=== PATIENT | female | born 1980 | race Caucasian/White ===

== ENCOUNTER 2016-11-19 07:30 | Inpatient (IN) | payer OTHER ==
[2016-11-19] MEDS ORDERED: TERBUTALINE SULFATE 1 MG/ML VIAL IV PRN (08:49)
[2016-11-19] MEDS ORDERED: EPSOM SALT 454 GM TP PRN (08:49)
[2016-11-19] MEDS ORDERED: OXYTOCIN/RINGERS LACTATE 1,000 ML IV PRN (08:49)
[2016-11-19] MEDS ORDERED: LR 1,000 ML IV PRN (08:49)
[2016-11-19] MEDS ORDERED: OLIVE OIL 118 ML BTL MISC PRN (08:49)
[2016-11-19] MEDS ORDERED: AMMONIA AROMATIC 1 EACH AMP IH ONE (08:58)
[2016-11-19] MEDS ORDERED: OLIVE OIL 118 ML BTL ONE (08:58)
[2016-11-19] MEDS ORDERED: OXYTOCIN 10 UNIT/ML VIAL ONE (08:58)
[2016-11-19] MEDS ORDERED: LIDOCAINE 1% 300 MG/30 ML SDV ONE (08:58)
[2016-11-19] MEDS ORDERED: MISOPROSTOL 200 MCG TAB ONE (08:58)
[2016-11-19] MEDS: CLINDAMYCIN 900 MG/DEXTROSE 50 ML IV SCH ×2 (09:20→22:29)
[2016-11-19 09:40] LABS: % IMMATURE GRANULYOCYTES 0.7 % (0.0-1.1); ABSOLUTE IMMATURE GRANULOCYTES 0.08 10^3/uL (0.00-0.10); ADD DIFF? NO; ADD MORPH? NO; ADD SCAN? NO; ATYPICAL LYMPHOCYTE FLAG 10 (0-99); FRAGMENT RBC FLAG 0 (0-99); HEMATOCRIT 42.2 % (38.0-47.0); HEMOGLOBIN 14.8 g/dL (12.6-16.3); LEFT SHIFT FLG 0 (0-99); LIPEMIA HEMOLYSIS FLAG 90 (0-99); MEAN CELL HEMOGLOBIN 32.3 pg (27.9-34.1); MEAN CELL HEMOGLOBIN CONCENTR. 35.1 g/dL (32.4-36.7); MEAN CELL VOLUME 92.1 fL (81.5-99.8); MEAN PLATELET VOLUME 11.3 fL (8.7-11.7); PLATELET CLUMPS FLAG 0 (0-99); PLATELET COUNT 163 10^3/uL (150-400); RED BLOOD CELL COUNT 4.58 10^6/uL (4.18-5.33); RED CELL DISTRIBUTION WIDTH 12.5 % (11.5-15.2)
[2016-11-19 09:46] LABS: ALANINE AMINOTRANSFERASE 32 IU/L (9-52); ASPARTATE AMINOTRANSFERASE 27 IU/L (14-46); BILIRUBIN,TOTAL 0.4 mg/dL (0.1-1.4); BILIRUBIN-CONJUGATED 0.1 mg/dL (0.0-0.5); BILIRUBIN-UNCONJUGATED 0.3 mg/dL (0.0-1.1); CREATININE 0.6 mg/dL (0.6-1.0); GLOMERULAR FILTRATION RATE > 60; LACTATE DEHYDROGENASE 443 IU/L (313-618); URIC ACID 5.9 mg/dL (2.5-6.8)
--- NOTE | 2016-11-19 10:42 | OBPROG ---
OBG Labor Progress Note Assessment/Plan: Assessment: 36 y/o @ 40 2/7 wks who presents with SROM Plan: Continue expectant management FHTs - Cat I tracing Pt desires an epidural at this time GBS +, treating with Abx-Clindamycin secondary to PCN allergy Anticipate 11/19/16 10:39 Subjective: Pt is having pain with ctx's and wants an epidural at this time. Objective: 11/19/16 09:20 11/19/16 09:20 Patient ABO/Rh A POSITIVE 11/19/16 09:20 Uric Acid 5.9 mg/dL (2.5-6.8) 11/19/16 09:20 Total Bilirubin 0.4 mg/dL (0.1-1.4) 11/19/16 09:20 Conjugated Bilirubin 0.1 mg/dL (0.0-0.5) 11/19/16 09:20 Unconjugated Bilirubin 0.3 mg/dL (0.0-1.1) 11/19/16 09:20 AST 27 IU/L (14-46) 11/19/16 09:20 ALT 32 IU/L (9-52) 11/19/16 09:20 Lactate Dehydrogenase 443 IU/L (313-618) 11/19/16 09:20 - SVE Dilation (cm): 5 Effacement (%): 90 Station: -1 Cain Current Contraction Pattern: Regular FHR (bpm): 130 FHR Pattern Variability: Moderate FHR Category: 1 Membranes: SROM Amniotic Fluid Color: Clear Oxytocin Orders Assessment - Pre-Induction/Augmentation Assessment Gestational Age: 40 week(s) and 2 day(s) ICD10 Worksheet Patient Problems: Problems Problem Status Onset AMA (advanced maternal age) multigravida 35+ Acute Active labor at term Acute Anxiety Acute GBS (group B Streptococcus carrier), +RV culture, currently Acute History of depression Acute
[2016-11-19] MEDS ORDERED: fentaNYL 2MCG/ML/BUP 0.1% RTU 100 ML BAG EP ONE (10:48)
[2016-11-19] MEDS ORDERED: PHENYLEPHRINE HCL 100 MCG/ML SYR ONE (10:49)
[2016-11-19] MEDS ORDERED: BUPIVACAINE 0.25% 30 ML SDV ONE (10:49)
[2016-11-19] MEDS ORDERED: PHENYLEPHRINE HCL 100 MCG/ML SYR IVP PRN (11:17)
--- NOTE | 2016-11-19 11:17 | PREANESOB ---
Obstetric Pre-Anesthesia Info - General Info Proposed Procedure: ANG : 3 Para: 0 - Info Status: Full Term, Cain Monitors: External FHR Pattern: Reassuring - Labor Status Cervical Dilation per last OB SVE: 5 Station per last OB SVE: -1 PIH: No Magnesium Sulfate in Use: No Indications for Labor Analgesia: Pain Control Labor Epidural: Proposed Anesthesia Allergies/Adverse Reactions: Allergy/AdvReac Type Severity Reaction Status Date / Time celecoxib [From Celebrex] Allergy Intermediate Verified 09/30/12 12:17 hydrocodone bitartrate Allergy Intermediate Verified 09/30/12 12:17 [From Vicodin] erythromycin base Allergy Verified 09/30/12 12:17 [Erythromycin Base] morphine Allergy Verified 09/30/12 12:17 oxycodone [Oxycodone] Allergy Verified 09/30/12 12:17 oxycodone HCl [From Percocet] Allergy Verified 09/30/12 12:17 Penicillins Allergy Verified 09/30/12 12:17 Home Medications: Medication Instructions Recorded *Pharmacy Completed 09/30/12 09/30/12 ALPRAZolam [Xanax 0.5 MG (RX)] 0.5 mg PO TID PRN 09/30/12 Acetaminophen [Tylenol Tablet] 500 - 1,000 mg PO DAILY PRN 09/30/12 Citalopram Hydrobromide 40 mg PO DAILY 09/30/12 [Citalopram HBr 40 MG] Levonorgestrel-Eth Estradiol 1 each PO DAILY 09/30/12 [[place]] Ondansetron Odt [Zofran Odt 4 mg 4 - 8 mg PO Q4 PRN 09/30/12 (RX)] Pantoprazole Sodium [Protonix 40mg 40 mg PO DAILY 09/30/12 (RX)] Promethazine HCl [Phenergan 50mg 50 mg [place] Q6 PRN 09/30/12 supp (RX)] Reconciled 09/30/12 09/30/12 buPROPion XL [Wellbutrin 150mg XL] 150 mg PO DAILY 09/30/12 Vit27&Calcium/Iron/FA 11/19/16 [] Visit Medications: Generic Name Dose Route Start Last Admin Trade Name Freq PRN Reason Stop Dose Admin Lactated Ringer's 1,000 mls @ 0 mls/hr 11/19/16 08:49 Lr IV 05/18/17 08:48 PRN PRN SEE PROTOCOL CONDITIONS Protocol Per Protocol Oxytocin/Lactated Ringer's 1,000 mls @ 150 mls/hr 11/19/16 08:49 Pitocin 20 Units/Lr (Premix) IV PRN PRN Post- bleeding Clindamycin Phosphate/Dextrose 50 mls @ 100 mls/hr 11/19/16 09:07 11/19/16 09 :20 Cleocin 900 Mg (Premix) IV 11/20/16 09:01 50 mls Q8HRS TAMI Administration Protocol Magnesium Sulfate 454 gm 11/19/16 08:49 Epsom Salt TP 05/18/17 08:48 Q1H PRN perineal discomfort [place] Oil 118 ml 11/19/16 08:49 Sweet Oil MISC 05/18/17 08:48 ONCE PRN preneal massage Terbutaline Sulfate 0.25 mg 11/19/16 08:49 Brethine IV 05/18/17 08:48 ONCE PRN Tachysystole Discontinued Medications Generic Name Dose Route Start Last Admin Trade Name Freq PRN Reason Stop Dose Admin Ammonia (Aromatic Spirit) Confirm 11/19/16 08:58 Ammonia Aromatic Administered 11/19/16 08:59 Dose 1 each IH .STK-MED ONE Bupivacaine HCl Confirm 11/19/16 10:49 Sensorcaine 0.25% Sdv Administered 11/19/16 10:50 Dose 30 ml .ROUTE .STK-MED ONE Fentanyl/Bupivacaine HCl Confirm 11/19/16 10:48 Fentanyl/Bupivacaine/Ns 2 Mcg/Ml 0.1% (Premix Administered 11/19/16 10:49 Dose 100 ml EP .STK-MED ONE Clindamycin Phosphate/Dextrose 50 mls @ 100 mls/hr 11/19/16 14:00 Cleocin 900 Mg (Premix) IV 12/19/16 13:59 Q8HRS [facility] Protocol Lidocaine HCl Confirm 11/19/16 08:58 Lidocaine Hcl 1% Administered 11/19/16 08:59 Dose 300 mg .ROUTE .STK-MED ONE Misoprostol Confirm 11/19/16 08:58 Cytotec Administered 11/19/16 08:59 Dose 800 mcg .ROUTE .STK-MED ONE [place] Oil Confirm 11/19/16 08:58 Sweet Oil Administered 11/19/16 08:59 Dose 118 ml .ROUTE .STK-MED ONE Oxytocin Confirm 11/19/16 08:58 Pitocin Administered 11/19/16 08:59 Dose 40 unit .ROUTE .STK-MED ONE Phenylephrine HCl Confirm 11/19/16 10:49 Neosynephrine Administered 11/19/16 10:50 Dose 1,000 mcg .ROUTE .STK-MED ONE - Focused Exam Height/Weight (Nursing): Height 162.56 cm Weight 83.461 kg Labs: 11/19/16 09:20 11/19/16 09:20 Patient ABO/Rh A POSITIVE 11/19/16 09:20 Uric Acid 5.9 mg/dL (2.5-6.8) 11/19/16 09:20 Total Bilirubin 0.4 mg/dL (0.1-1.4) 11/19/16 09:20 Conjugated Bilirubin 0.1 mg/dL (0.0-0.5) 11/19/16 09:20 Unconjugated Bilirubin 0.3 mg/dL (0.0-1.1) 11/19/16 09:20 AST 27 IU/L (14-46) 11/19/16 09:20 ALT 32 IU/L (9-52) 11/19/16 09:20 Lactate Dehydrogenase 443 IU/L (313-618) 11/19/16 09:20
--- NOTE | 2016-11-19 11:25 | POSTANESTH ---
Post Anesthetic Evaluation Cardiovascular Status: Normal, Stable, Similar to Pre-Op Cond Respiratory Status: Normal, Stable, Similar to Pre-op Cond. Level of Consciousness/Mental Status: Can Participate in Eval, Alert and Oriented Pain Control: Adequate, Prn Tx Ordered Nausea/Vomiting Control: Adequate, Prn Tx Ordered Complications Possibly Related to Anesthesia: None Noted (Took about 30 min for loading dose + bolus to adequately relieve pain.)
[2016-11-19] MEDS ORDERED: LR 500 ML IV SCH (11:30)
[2016-11-19] MEDS ORDERED: fentaNYL 2MCG/ML/BUP 0.1% RTU 100 ML EP SCH (11:30)
--- NOTE | 2016-11-19 11:47 | GHP ---
[f rep st] HISTORY AND PHYSICAL DATE OF ADMISSION: 11/19/2016 ADMITTING DIAGNOSES: 1. Intrauterine at 40 weeks and 2 days. 2. Spontaneous rupture of membranes. 3. Advanced maternal age. HISTORY OF PRESENT ILLNESS: The patient is a 36-year-old, 4, para 1-0-2 -1, at 40 and 2/7 weeks with an estimated due date 11/17/2016, by last menstrual period 01/18/2016, and confirmed by ultrasound at 9 weeks and 5 days. The patient presents to Labor and Delivery with complaints of leakage of fluid ; clear fluid noted at 6:30 this morning. Denies any vaginal bleeding or spotting. States good movement. Notes irregular contractions. The patient has good care at [facility] and presented in 1st trimester at 9 weeks. is complicated by advanced maternal age. All genetic testing is negative. The patient has a history of anxiety and depression; currently on no medications. She also has a history of a LEEP in 2002 secondary to SHELLI 3. Cervical length was stable during . She has a history of constipation and is seeing a GI doctor for anal fissures. The patient received Tdap during the . She had a colposcopy during the for abnormal Pap smear, positive HPV 11/16, and there was noted to be a cervical polyp, which was removed without any difficulty. No biopsies were taken. GBS culture is positive. PAST OBSTETRIC HISTORY: In 2011, she had a therapeutic . In October 2011 , she had a spontaneous . No D and C needed. In July 2014, she had a full-term vaginal delivery, viable male at 39 plus weeks, weighing 8 pounds 1 ounce. She had an epidural, uncomplicated. She was positive for GBS. PAST GYNECOLOGIC HISTORY: Age of menarche 10. Cycles are every 30 days for 4- 5 days. True last menstrual period is 01/18/2016. Positive test . Patient has a history of abnormal Pap smears with a LEEP secondary to SHELLI 3 in 2002. Positive HPV. Denies exposure to any other STDs. MEDICAL HISTORY: Remarkable for anxiety and depression. MEDICATIONS: vitamins. ALLERGIES: PCN, Celecoxib, Hydrocodone bitartrate. PAST SURGICAL HISTORY: LEEP in 2002, therapeutic 2011, cholecystectomy 2011, left bunionectomy in 1997, right eye torn retina 2006. SOCIAL HISTORY: Patient is . She lives with her and their son. She is a [id number] mom. Denies any alcohol, tobacco, or illicit drug use. FAMILY HISTORY: Maternal grandmother with diabetes as well as gallbladder issues, ulcerative colitis. Maternal grandmother with breast cancer diagnosed in mid 50s. REVIEW OF SYSTEMS: 10-point review of systems negative except for pertinent positives noted in HPI. LABS: Blood type A positive, antibody negative. RPR nonreactive, rubella immune. Hepatitis B surface antigen negative. HIV negative. Trio screen was negative, 2013. Urine culture negative. Pap test 02/15 was negative , but positive high risk HPV. GC, chlamydia negative 04/18. AFP negative, verified as negative. H and H 12.7 and 37.4. One hour Glucola 97. GBS is positive. PHYSICAL EXAMINATION: VITAL SIGNS: On admission, vital signs are stable. GENERAL: Well-nourished, well-developed female. Alert and oriented x3. No apparent distress. CARDIOVASCULAR: Regular rate and rhythm. LUNGS: Clear to auscultation bilaterally. ABDOMEN: Gravid, soft, nontender, nondistended. EXTREMITIES: Normal to inspection without calf tenderness or edema. PELVIC: Patient is grossly ruptured. AmniSure positive, and found to be 4 cm dilated, 90 % effaced, -1 station. Cephalic. heart tones category 1 tracing with baseline 130 beats per minute. Positive accelerations. No decelerations. Moderate variability. On toco, she is jasmin irregularly. ASSESSMENT/PLAN: Patient is a 36-year-old, 4, para 1-0-2-1 at 40 and 2/ 7 weeks who presents with spontaneous rupture of membranes. 1. Admit to Labor and Delivery for expectant management. 2. GBS is positive. Will treat with clindamycin secondary to penicillin allergy. 3. Patient desires an epidural. 4. Anticipate spontaneous vaginal delivery. /[id number]/MODL MTDD
[2016-11-19] MEDS ORDERED: BUPIVACAINE/EPI 0.25% 30 ML SDV ONE (12:25)
[2016-11-19] MEDS ORDERED: CLINDAMYCIN 900 MG/DEXTROSE 50 ML IV SCH (14:00)
[2016-11-19] MEDS: IBUPROFEN 600 MG TAB PO PRN ×2 (15:18→21:26)
[2016-11-19] MEDS ORDERED: HYDROCORTISONE 0.5% CREAM TP PRN (15:19)
[2016-11-19] MEDS ORDERED: SIMETHICONE 80 MG TAB CHEW PO PRN (15:19)
[2016-11-19] MEDS ORDERED: HYDROCODONE/APAP 5/325 TAB PO PRN (15:19)
[2016-11-19] MEDS ORDERED: IBUPROFEN 600 MG TAB PO PRN (15:20)
--- NOTE | 2016-11-19 15:23 | OBDEL ---
Info Type: Vaginal GBS+: Yes Antibiotic Used for + GBS: Clindamycin Number of Antibiotic Doses Given: 1 Indications for Delivery: SROM Vaginal Delivery - Labor and Delivery Onset of Contractions Date: 11/19/16 Onset of Contractions Time: 07:30 Onset of Contractions Type: Spontaneous Rupture of Membranes Date: 11/19/16 Rupture of Membranes Time: 06:40 Rupture of Membranes Type: Spontaneous Amniotic Fluid Color: Clear Dilation Complete Date: 11/19/16 Dilation Complete Time: 14:20 Placenta Delivery Date: 11/19/16 Placenta Delivery Time: 15:05 Total Hours of Labor: 7 Laceration: 1st Degree Repair: Other (Specify) (None) Vaginal Sponge Count Correct: Yes Vaginal Needle Count Correct: Yes Vaginal Sweep Performed: Yes EBL: 300 cc Delivery Events: None [place] Data Cain Delivery Date: 11/19/16 Delivery Time: 14:57 RADHA: 11/17/16 Gestational Age: 40 week(s) and 2 day(s) Sex of : Female ("Sonya Maki") Score (1 Min): 8 Score (5 Min): 9 ICD10 Worksheet Patient Problems: Problems Problem Status Onset AMA (advanced maternal age) multigravida 35+ Acute Active labor at term Acute Anxiety Acute GBS (group B Streptococcus carrier), +RV culture, currently Acute History of depression Acute
[2016-11-19] MEDS ORDERED: ONDANSETRON DISINTEGRATING 4 MG TAB PO PRN (15:26)
[2016-11-19 17:58] VITALS: RESP 18
[2016-11-19] MEDS: DOCUSATE SODIUM 100 MG CAP PO PRN (21:26)
[2016-11-20] MEDS: DOCUSATE SODIUM 100 MG CAP PO PRN (00:25)
[2016-11-20] MEDS: CLINDAMYCIN 900 MG/DEXTROSE 50 ML IV SCH (02:36)
[2016-11-20] MEDS: IBUPROFEN 600 MG TAB PO PRN ×2 (08:08→21:45)
--- NOTE | 2016-11-20 18:13 | OBPP ---
Progress Note Assessment/Plan: Assessment: 36yo s/p PPD#1 Anemia 2nd degree laceration BF Plan: cont routine PP care cont support will cont iron therapy plan to d/c home tomorrow 11/20/16 18:09 11/20/16 18:14 Subjective: pt doing well, no complaints reports min bleeding reports min cramping, worse with Bfing Objective: 11/19/16 09:20 11/19/16 09:20 Patient ABO/Rh A POSITIVE 11/19/16 09:20 Uric Acid 5.9 mg/dL (2.5-6.8) 11/19/16 09:20 Total Bilirubin 0.4 mg/dL (0.1-1.4) 11/19/16 09:20 Conjugated Bilirubin 0.1 mg/dL (0.0-0.5) 11/19/16 09:20 Unconjugated Bilirubin 0.3 mg/dL (0.0-1.1) 11/19/16 09:20 AST 27 IU/L (14-46) 11/19/16 09:20 ALT 32 IU/L (9-52) 11/19/16 09:20 Lactate Dehydrogenase 443 IU/L (313-618) 11/19/16 09:20 Temp Pulse Resp BP Pulse Ox 36.7 C 87 18 129/82 H 97 11/20/16 08:05 11/20/16 08:05 11/20/16 08:05 11/20/16 08:05 11/20/16 08:05 VSS, normotensive, afebrile nipples normal, no cracks/bleeding, no erythema perineum: healing well, approximated well, min edema lochia: moderate rubra Uterine Position/Fundal Height: Umbilicus -1 Uterine Tone: Firm Physical Exam - Physical Exam General Appearance: WD/WN, alert, no apparent distress EENT: PERRL/EOMI Neck: supple Abdomen: non-tender, soft, other (uterus firm @ U-1) Extremities: non-tender, other (negative edema, negative monica's sign) Skin: normal color, warm/dry Neuro/Psych: no motor/sensory deficits, alert, normal mood/affect, oriented x 3
[2016-11-21 05:29] VITALS: O2SAT 98
--- NOTE | 2016-11-21 08:42 | OBPP ---
Progress Note Assessment/Plan: Assessment: s/p PPD # 2 - pt is stable Plan: Plan for d/c home today Instructions reviewed with pt No RX given Cont PNV Pelvic rest RTC in 4 and 6 weeks for pp visit 11/21/16 08:40 Subjective: Pt seen and examined. Doing well with no complaints. Minimal cramping. Mod lochia. Mellissa reg diet, voiding and BM x 3. BF without difficulty. Objective: 11/19/16 09:20 11/19/16 09:20 Patient ABO/Rh A POSITIVE 11/19/16 09:20 Uric Acid 5.9 mg/dL (2.5-6.8) 11/19/16 09:20 Total Bilirubin 0.4 mg/dL (0.1-1.4) 11/19/16 09:20 Conjugated Bilirubin 0.1 mg/dL (0.0-0.5) 11/19/16 09:20 Unconjugated Bilirubin 0.3 mg/dL (0.0-1.1) 11/19/16 09:20 AST 27 IU/L (14-46) 11/19/16 09:20 ALT 32 IU/L (9-52) 11/19/16 09:20 Lactate Dehydrogenase 443 IU/L (313-618) 11/19/16 09:20 Temp Pulse Resp BP Pulse Ox 36.8 C 86 18 135/82 H 98 11/20/16 20:00 11/20/16 20:00 11/20/16 20:00 11/20/16 20:00 11/20/16 20:00 Uterine Position/Fundal Height: Umbilicus -2 Uterine Tone: Firm Physical Exam - Physical Exam General Appearance: WD/WN, alert, no apparent distress Respiratory: lungs clear, normal breath sounds Cardiac/Chest: regular rate, rhythm Abdomen: normal bowel sounds, non-tender, soft, flatus (+) Extremities: non-tender, normal inspection Skin: normal color, warm/dry Neuro/Psych: alert, normal mood/affect, oriented x 3
--- NOTE | 2016-11-21 08:45 | OBGCSDC ---
General Delivery Information - General Info : 3 Para: 1 Delivery Physician/CNM: Bonnie Alvarez Admission Date: 11/19/16 Labs: Patient ABO/Rh A POSITIVE 11/19/16 09:20 Hct 42.2 % (38.0-47.0) 11/19/16 09:20 Vaginal - Diagnosis Labor: Spontaneous Rupture of Membranes Type: Spontaneous Amniotic Fluid Color: Clear Laceration: 1st Degree Repair: Other (Specify) (None) Delivery Events: None - Operations/Procedures L&D Analgesia/Anesthesia Type: Epidural - Hospital Course Antepartum: AMA with negative genetic testing. h/o anxiety and depression on no meds. h/o LEEP Intrapartum: SROM-clear and then spontaneous labor. Uncomplicated : Uncomplicated. Minimal cramping. Mod lochia. BM x 3. Voiding without difficulty. BF well. - Delivery L&D Analgesia/Anesthesia Type: Epidural [place] Data Cain Delivery Date: 11/19/16 Delivery Time: 14:57 RADHA: 11/17/16 Gestational Age: 40 week(s) and 4 day(s) Sex of : Female Weight (gm): 3764 kg Score (1 Min): 8 Score (5 Min): 9 Discharge Information - Discharge Information Discharge Medications: Ibuprofen, Vitamins Condition: Good Instruction/Follow Up: Four Weeks, Six Weeks Discharge Physician/CNM: Bonnie Alvarez
[2016-11-21] MEDS: IBUPROFEN 600 MG TAB PO PRN (08:59)
[2016-11-21 09:27] VITALS: BP 138/86; PULSE 87; TEMP 97.3
== END 2016-11-21 14:20 | disposition home or self-care (01) | DRG 775 ==
LOC: FLD 07:30 → INTOOBSV 07:30 → OBSVTOIN 07:30 → FOB 17:47
PROVIDERS: ADMIT Obstetrics & Gynecology; ATTEND Obstetrics & Gynecology
PROC: 0HQ9XZZ Repair Perineum Skin, External Approach (ICD-10-PCS; principal; 2016-11-19)
PROC: 10E0XZZ Delivery of Products of Conception, External Approach (ICD-10-PCS; principal; 2016-11-19)
DX: O48.0 Post-term pregnancy (principal); O99.824 Streptococcus B carrier state complicating childbirth; Z37.0 Single live birth; Z3A.40 40 weeks gestation of pregnancy; O70.0 First degree perineal laceration during delivery
CPT/HCPCS: J2370; J2590